=== PATIENT | male | born 1960 | race Caucasian/White ===

== ENCOUNTER → 2019-05-06 10:59 | Outpatient (CLI) | payer MEDICARE, MEDICAID, SELFPAY ==
--- NOTE | 2019-05-06 | DI.CT.S_ITS ---
PROCEDURE: CT HEAD/BRAIN WO CON INDICATIONS: Headache TECHNIQUE: Noncontrast 4.5 mm thick angled axial sections acquired from the foramen magnum to the vertex, with coronal and sagittal reformats. For radiation dose reduction, the following was used: automated exposure control, adjustment of mA and/or kV according to patient size. COMPARISON: None. FINDINGS: Image quality: Excellent. CSF spaces: Basal cisterns are patent. No extra-axial fluid collections. Ventricles are normal in size and shape. Brain: No midline shift. No intracranial masses or hemorrhage. Sears-white matter interface is normal. Skull and face: Calvarium and visualized facial bones are intact, without suspicious lesions. Sinuses: Visualized sinuses and mastoids are clear. IMPRESSION: 1. No acute intracranial abnormalities. Dictated by: Michael Villar M.D. on 05/06/2019 at 11:35 Approved by: Michael Villar M.D. on 05/06/2019 at 11:38
== END ==
PROVIDERS: Family Provider Family Medicine; PCP Family Medicine; Visit Provider Family Medicine
DX: R51 Headache (principal)
CPT/HCPCS: 70450

== ENCOUNTER 2019-12-28 10:45 | Emergency (ER) | payer MEDICARE, SELFPAY ==
[2019-12-28 10:52] VITALS: BP 145/99; PULSE 98; RESP 16; TEMP 36.6; O2SAT 98; BMI 25.1
--- NOTE | 2019-12-28 10:58 | ED_ITS ---
HPI - Back Pain/Injury General Chief Complaint: Back Pain/Injury Stated Complaint: chronic pain all down the spine Time Seen by Provider: 12/28/19 10:46 Source: patient Mode of arrival: Wheelchair Limitations: no limitations History of Present Illness HPI Narrative: 59M smoker with history of chronic neck and back pain from DJD as well as history of head and neck cancer presents with a chief complaint of ongoing pain for the past 3 days. He states the pain is along his spine in its typical distribution. He denies any numbness, tingling or weakness. He denies any trouble controlling bowel or bladder but states that his pain is been bad and as a result he does not make it to the bathroom in time. He denies any falls or injuries. He denies any foot drop. He states that his pain is chronically managed by his primary care provider and he is expecting a refill on Sunday but ran out. He denies any fever or chills. He is nauseated but denies any vomiting. He denies any abdominal pain or change in bowel habits. Denies any dysuria, frequency or urgency MD Complaint: back pain Onset (ago): year(s) Duration: constant Similar Symptoms Previously: Yes Location: lumbar spine and thoracic spine Severity: severe Quality: burning and aching Radiation: none Relieving factors: none Exacerbating factors: movement Associated symptoms: denies other symptoms Related Data Home Medications Medication Instructions Recorded Confirmed LEVOTHYROXINE SODIUM 100 mcg PO QDAY #0 12/07/12 citalopram 40 mg PO QDAY #0 12/07/12 diazepam [Valium] 5 mg PO HS #0 12/07/12 hydrocodone-acetaminophen [Vicodin] 1 tab PO Q4HP PRN #0 12/07/12 lisinopril 40 mg PO QDAY #0 12/07/12 Previous Rx's Medication Instructions Recorded ketorolac 10 mg PO Q6H PRN #14 tab 12/28/19 lidocaine 1 patch TOP DAILY #15 each 12/28/19 prednisone 20 mg PO DAILY #5 tab 12/28/19 Allergies Allergy/AdvReac Type Severity Reaction Status Date / Time No Known Drug Allergies Allergy Verified 12/28/19 12:06 Review of Systems Constitutional Constitutional: Denies chills, Denies fatigue, Denies fever(s), Denies frequent falls, Denies lethargy and Denies weakness Eyes Eyes: Denies change in vision, Denies eye discharge, Denies irritation and Denies loss of vision ENT Ears, Nose, Mouth, and Throat: Denies change in voice, Denies dizziness, Reports neck pain, Denies sore throat and Denies throat swelling Cardiovascular Cardiovascular: Denies chest pain, Denies irregular heart rhythm, Denies lightheadedness, Denies palpitations, Denies dyspnea, Denies dyspnea on exertion and Denies orthopnea Respiratory Respiratory: Denies cough, Denies dyspnea, Denies dyspnea on exertion and Denies wheezing Gastrointestinal Gastrointestinal: Denies abdominal pain, Denies change in bowel habits, Denies diarrhea, Denies nausea and Denies vomiting Genitourinary Genitourinary: Denies hematuria, Denies flank pain, Denies urinary incontinence and Denies urinary urgency Musculoskeletal Musculoskeletal: Reports back pain, Denies muscle weakness, Reports neck pain, Denies numbness and Denies tingling Integumentary/Breasts Skin/Breast: Denies pruritus, Denies erythema, Denies rash and Denies wounds Neurologic Neurologic: Denies behavioral changes, Denies confusion, Denies dizziness, Denies frequent falls, Denies loss of vision, Denies numbness, Denies tingling and Denies weakness Psychiatric Psychiatric: Denies anxiety, Denies behavioral changes, Denies confusion, Denies depression, Denies homicidal ideation and Denies suicidal ideation Endocrine Endocrine: Denies fatigue, Denies flushing and Denies palpitations Hematologic/Lymphatic Hematologic/Lymphatic: Denies easy bruising Allergic/Immunologic Allergic/Immunologic: Denies urticaria, Denies throat swelling and Denies wheezing Patient History Social History Smoking Status: Current every day smoker Smoking Status: Current every day smoker Substance Use Type: does not use Exam Narrative Exam Narrative: GENERAL: [51] year old patient appears stated age. Well- nourished, well-developed patient, in mild distress. Obviously uncomfortable HEAD: Atraumatic. Normocephalic. EYES: Pupils equal round and reactive. Extraocular motions intact. No scleral icterus. No injection or drainage. ENT: Nose without bleeding, purulent drainage. Throat without erythema, tonsillar hypertrophy or exudate. Airway patent. NECK: Trachea midline. Non tender CARDIOVASCULAR: Regular rate and rhythm without murmurs, gallops, or rubs. RESPIRATORY: Clear to auscultation. Breath sounds equal bilaterally. No wheezes, rales, or rhonchi. GASTROINTESTINAL: Abdomen soft, non-tender, nondistended. EXTREMITIES: No edema or joint tenderness. BACK: boiler tender but free of any obvious external abnormalities. Patient exam notes decreased range of motion and muscle spasm, but no CVA tenderness, or vertebral point tenderness. There are no symptoms of cauda equina such as saddle anesthesia, and decreased reflexes, decreased sensation or strength. NEURO: AOx3. SKIN: No rash or erythema of visible areas Initial Vital Signs Initial Vital Signs: Vital Signs Temperature 97.9 F 12/28/19 10:52 Pulse Rate 98 H 12/28/19 10:52 Respiratory Rate 16 12/28/19 10:52 Blood Pressure 145/99 H 12/28/19 10:52 Pulse Oximetry 98 12/28/19 10:52 Course Orders Ordered: ED Orders 12/28/19 10:59 CT cervical spine wo con Stat CT lumbar spine wo con Stat CT thoracic spine wo con Stat Discontinued Medications Ondansetron HCl (Zofran Odt Prepack) 1 bottle MISC SEEINSTR ONE Stop: 12/28/19 12:05 Last Admin: 12/28/19 13:03 Dose: Not Given Documented by: MICHELLE Ondansetron HCl (Zofran Odt) 4 mg SL NOW ONE Stop: 12/28/19 12:10 Last Admin: 12/28/19 12:13 Dose: 4 mg Documented by: MICHELLE Vital Signs Vital signs: Vital Signs - 8 hr 12/28/19 10:52 12/28/19 13:10 Temperature 97.9 F Pulse Rate 98 H 89 Respiratory Rate 16 17 Blood Pressure 145/99 H Blood Pressure [Right Arm] 159/91 H Pulse Oximetry 98 98 MDM - Back Pain/Injury Lab Data Labs: Point of Care Testing Glucose POC [address] - cervical spine: Radiologist's Impression: [address] [address] [address] Scan Report Signed Patient: Apollo Alarcon#: [id number] : 1Acct:[id number] Age/Sex: 59 / MDate of Service: 12/28/19 Loc: ED Accession Number: [id number] Procedure: CT cervical spine wo con Ordering Provider: Fabricio Swanson D.O. PROCEDURE: CT CERVICAL SPINE WO CON INDICATIONS: severe bone pain, hx nead and neck cancer TECHNIQUE: Noncontrast 3 mm thick sections acquired from the skull base to the T4 level. Sagittal and coronal reformats were then constructed. For radiation dose reduction, the following was used: automated exposure control, adjustment of mA and/or kV according to patient size. COMPARISON: [facility], CT, NECK SOFT TIS. W/CONTRAST, 04/23/2012, 16:04. [facility], CT, CT LUMBAR SPINE WO CON, 12/28/2019, 11:16. [facility], CT, CT HEAD/BRAIN WO CON, 05/06/2019, 11:19. [facility], CT, CT THORACIC SPINE WO CON, 12/28/2019, 11:16. FINDINGS: Image quality: This examination is somewhat limited by quantum mottle artifact. Bones: No fractures or dislocations. Visualized superior ribs are intact. Left mandible postoperative changes are seen, with plate and screw fixation. Cervical spine degenerative changes are seen, including at least moderate disc space narrowing at C5-C6 and C6-C7. Posteriorly endplate osteophytes are seen at these levels. Bridging anterior osteophytes are seen at C6-C7. Soft tissues: Left neck postoperative changes are seen, numerous postoperative clips. Prevertebral soft tissues are normal in thickness. No paravertebral hematomas. No apical pneumothoraces. IMPRESSION: No acute bony abnormality is seen. Lower cervical spine degenerative changes are seen. Left neck postoperative changes are seen, with numerous postoperative clips. No felipe soft tissue masses are seen. Postoperative change is seen of the left mandible. Dictated by: Nguyễn Ferrer M.D. on 12/28/2019 at 11:00 Approved by: Nguyễn Ferrer M.D. on 12/28/2019 at 11:05 Thoracic Spine: Radiologist's Impression: Apollo Alarcon 59 M [address] [address] [address] Scan Report Signed Patient: Apollo AlarconMR#: [id number] : [id number] Age/Sex: 59 / MDate of Service: 12/28/19 Loc: ED Accession Number: [id number] Procedure: CT thoracic spine wo con Ordering Provider: Fabricio Swanson D.O. PROCEDURE: CT THORACIC SPINE WO CON INDICATIONS: severe bone pain, hx nead and neck cancer TECHNIQUE: Noncontrast 3 mm thick sections acquired through the region of interest in the thoracic spine. Sagittal and coronal reformats were then constructed. For radiation dose reduction, the following was used: automated exposure control. COMPARISON: [facility], CT, CT CERVICAL SPINE WO CON, 12/28/2019, 11:16. [facility], CT, CT LUMBAR SPINE WO CON, 12/28/2019, 11:16. FINDINGS: Image quality: Excellent. Bones: There is normal overall bony alignment. No acute vertebral body compre ssion fractures. No suspicious sclerotic or lytic bony lesions. Central spinal canal is of normal overall caliber. Age-appropriate bony degenerative changes are seen. Soft tissues: There is partial visualization of the left neck postoperative change. No paravertebral masses or hematomas. Visualized posteromedial lungs appear clear. IMPRESSION: Unremarkable thoracic spine, without felipe findings of metastatic disease. Left neck postoperative changes are partially seen. Dictated by: Nguyễn Ferrer M.D. on 12/28/2019 at 11:06 Discharge Plan Departure Patient Disposition: Home Clinical Impression: Lumbar pain, Neck pain Chronic back pain Qualifiers: Back pain location: thoracic back pain Back pain laterality: midline Qualified Code(s): M54.6 - Pain in thoracic spine Discharge Date/Time: 12/28/19 13:10 Instructions: Chronic Neck Pain, DI for Chronic Pain -- Adult Activity Restrictions/Additional Instructions: *You have been diagnosed with [acute on chronic cervical, thoracic, and lumbar pain] *What to do: *Take medications as directed: Prescriptions electronically transmitted to [facility] at your request *Follow up with your primary care provider in 2-3 days, call for an appointment. Let them know you were seen in the Emergency Department and that we ask that you be seen in follow up *Return to ER if you should have any new, worsening or concerning symptoms Prescriptions: New ketorolac 10 mg tablet 10 mg PO Q6H PRN (Reason: pain) Qty: 14 RF: 0 prednisone 20 mg tablet 20 mg PO DAILY Qty: 5 RF: 0 lidocaine 5 % adhesive patch,medicated 1 patch TOP DAILY Qty: 15 RF: 0 No Action hydrocodone-acetaminophen [Vicodin] 5 MG/300 MG tablet 1 tab PO Q4HP PRNQty: 0 RF: 0 lisinopril 40 MG tablet 40 mg PO QDAY Qty: 0 RF: 0 LEVOTHYROXINE SODIUM 100 mcg PO QDAY Qty: 0 RF: 0 citalopram 20 MG tablet 40 mg PO QDAY Qty: 0 RF: 0 diazepam [Valium] 5 MG tablet 5 mg PO HS Qty: 0 RF: 0 Referrals: Virgilio Hebert MD [Primary Care Provider] -
--- NOTE | 2019-12-28 10:59 | DI.CT.S_ITS ---
PROCEDURE: CT LUMBAR SPINE WO CON INDICATIONS: severe bone pain, hx of cancer TECHNIQUE: Noncontrast 3 mm thick sections acquired from the T12 level to the sacrum. Sagittal and coronal reformats were constructed. For radiation dose reduction, the following was used: automated exposure control. COMPARISON: [facility], CT, CT CERVICAL SPINE WO CON, 12/28/2019, 11:16. FINDINGS: Image quality: Excellent. Bones: No acute vertebral body compression fractures. No suspicious lytic or blastic bony lesions. Central spinal caliber is of normal overall caliber. Bilateral pars defects are seen at the L5-S1 level. There is minimal anterolisthesis seen at L5-S1. Minimal retrolisthesis is seen at the L4-L5 level. L1-L2: No significant abnormality is seen. L2-L3: The disc height is well-preserved. Ogfm-rd-iagaynrb disc bulge is seen. No significant neural foraminal or central canal narrowing can be seen. L3-L4: The disc height is relatively well-preserved. Moderate disc bulge is seen, which is eccentric to the left. There is mild to moderate right-sided and moderate left-sided neural foraminal narrowing seen. Nykw-ic-wbbdlsup central canal narrowing is seen. L4-L5: The disc height is well preserved. Moderate disc bulge is seen, with a central disc protrusion. Moderate bilateral neural foraminal narrowing is seen. Moderate central canal narrowing is seen. L5-S1: The disc height is well preserved. Mild generalized disc bulge is seen. Moderate bilateral neural foraminal narrowing is seen. No significant central canal narrowing is seen. Soft tissues: No retroperitoneal masses or hematomas. Visualized aorta is normal in caliber. IMPRESSION: No acute abnormality is seen. No felipe findings of metastatic disease can be seen. Bilateral L5 pars defects, with minimal grade 1 L5-S1 anterolisthesis. Lower spine degenerative changes. Dictated by: Nguyễn Ferrer M.D. on 12/28/2019 at 11:08 Approved by: Nguyễn Ferrer M.D. on 12/28/2019 at 11:11
--- NOTE | 2019-12-28 11:10 | PC.NURSE ---
pt states he ran out of pain medication 3 days again.
[2019-12-28] MEDS: ONDANSETRON 4 MG ODT SL (12:13)
--- NOTE | 2019-12-28 13:00 | PC.NURSE ---
Chronic back pain. Has been out of home meds for couple days.
[2019-12-28 13:10] VITALS: BP 159/91; PULSE 89; RESP 17; O2SAT 98
== END 2019-12-28 13:10 | disposition home or self-care (01) ==
PROVIDERS: Emergency Provider Emergency Medicine; Family Provider Family Medicine; PCP Family Medicine
DX: M54.6 Pain in thoracic spine (principal); M54.5 Low back pain; M54.2 Cervicalgia
CPT/HCPCS: 72125; 72128; 72131; 82962; 99283; 99284

== ENCOUNTER 2020-07-10 23:54 | Emergency (ER) | payer MEDICARE, SELFPAY ==
[2020-07-11 00:06] VITALS: BP 131/65; PULSE 98; RESP 22; TEMP 37; O2SAT 97; BMI 25.5
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
[2020-07-11] MEDS: ONDANSETRON 4 MG ODT SL (00:37)
[2020-07-11] MEDS: HYDROMORPHONE 1 MG INJ IM (00:38)
[2020-07-11] MEDS: OXYCODONE IR 5 MG TABLET 10 MG PO ×2 (02:47→07:02)
--- NOTE | 2020-07-11 03:00 | PC.NURSE ---
PT cleared for discharge by provider. Pt had come by taxi, taxi no longer running. states will walk to hotel. unable to get a hold of any of the hotels to get him a room. His daughter called stating will work on getting him a ride. and will call us back when able.
[2020-07-11 04:33] VITALS: PULSE 91; O2SAT 94
[2020-07-11 04:34] VITALS: BP 108/65; PULSE 92; O2SAT 94
--- NOTE | 2020-07-11 05:42 | PC.NURSE ---
Haven't heard from back from daughter. Placed call to daughter with no response. left message to call back and discuss discharge plan.
[2020-07-11 06:53] VITALS: BP 143/88
[2020-07-11 06:55] VITALS: PULSE 104; O2SAT 96
== END 2020-07-11 07:10 | disposition home or self-care (01) ==
PROVIDERS: Emergency Provider Emergency Medicine; Family Provider Family Medicine; PCP Family Medicine
DX: M54.5 Low back pain (principal)
CPT/HCPCS: 96372; 99281; 99283; J1170